=== PATIENT | female | born 1985 | race Caucasian/White ===

== ENCOUNTER 2016-11-30 07:18 | Emergency (ER) | payer MEDICAID ==
[~2016-11-30] VITALS: Ht 167.6 cm; Wt 63.5 kg
[2016-11-30 07:53] VITALS: BP 125/76
== END 2016-11-30 08:24 | disposition home or self-care (01) ==
LOC: ER 07:18
DX: F31.9 Bipolar disorder, unspecified (principal); Z88.8 Allergy status to other drugs, medicaments and biological substances; Z53.21 Procedure and treatment not carried out due to patient leaving prior to being seen by health care provider

== ENCOUNTER 2025-01-16 14:26 | Emergency (ER) | payer MEDICAID, OTHER ==
[~2025-01-16] VITALS: Ht 167.6 cm; Wt 61.5 kg
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
--- NOTE | 2025-01-16 15:57 | DVH ---
CLINICAL INDICATION: trauma TECHNIQUE: 3 radiographic views of the left hand were obtained. Comparison: None FINDINGS/IMPRESSION: There is 1.4 x 1 cm lytic lesion over the proximal part of the 5th digit proximal phalanx with associ ated comminuted mildly displaced fracture consistent with a pathologic fracture.
--- NOTE | 2025-01-16 16:09 | DVH ---
EXAM: CT HEAD WITHOUT CONTRAST INDICATION: trauma TECHNIQUE: CT of the head without intravenous contrast. Radiation Dose : 1. Head: CT Dose: CTDI volume is 51.63 mGy. Dose-length product is 755.91 mGy*cm The dose indicators for CT are the volume Computed Tomography (CT) Dose Index (CTDIvol) and the Dose Length Product (DLP), and are measured in units of mGy and mGy-cm, respectively. These indicators are not patient dose, but values generated from the CT scanner acquisition factors. The report includes radiation exposure data for exposures received during this examination. COMPARISON: None FINDINGS: There is no evidence of acute intracranial hemorrhage, extra-axial collection, mass effect, midline s hift, herniation or hydrocephalus. The ventricles, sulci and cisterns are age appropriate. The chaidez-white differentiation is intact. Patchy periventricular and subcortical white matter hypoattenuation is nonspecific but may be related to small vessel ischemic disease. The visualized paranasal sinuses and mastoid air cells are clear. The surrounding soft tissues and osseous structures are unremarkable. IMPRESSION: 1. No acute intracranial abnormality. Radiation optimization: All CT scans at this facility use at least one of these dose optimization blas hniques: automated exposure control mA and/or kV adjustment per patient size (includes targeted exam s where dose is matched to clinical indication) or iterative reconstruction.
[2025-01-16 16:39] VITALS: PULSE 60; RESP 11; O2SAT 98
[2025-01-16] MEDS: HYDROcodone-ACET 10/325MG TAB PO ONE (16:43)
[2025-01-16] MEDS: LIDOCAINE 1% HCL (LOCAL ANESTH.) INJ 20ML MDV ONE (16:45)
[2025-01-16] MEDS: LIDOCAINE 1% (LOCAL ANESTH.) PF 5ml SDV ID ONE (17:00)
[2025-01-16] MEDS ORDERED: HYDR-4902 PO (17:10)
[2025-01-16] MEDS: BACITRACIN TOP OINT 1 UD PKG TOP ONE (17:12)
--- NOTE | 2025-01-16 17:42 | DVH ---
CLINICAL INDICATION: trauma TECHNIQUE: 3 views XY L WRIST 2 VIEW XRAY Comparison: XY L HAND 3V XRAY on DOS: 01/16/25 FINDINGS/IMPRESSION: : Pathologic fracture of the proximal diaphyseal shaft of the proximal phalanx of the left 5th digit. C ystic lesion identified of the proximal 1/2 of the proximal phalanx of the left 5th digit. Differenti al diagnosis would include aneurysmal bone cyst as well as unicameral cyst.
[2025-01-16 19:00] VITALS: BP 117/75; PULSE 63; RESP 12; TEMP 98.1; O2SAT 99
== END 2025-01-16 19:25 | disposition home or self-care (01) ==
LOC: ER 14:26 → EDBD 14:26 → ER 19:25
DX: S62.102A Fracture of unspecified carpal bone, left wrist, initial encounter for closed fracture (principal); S81.812A Laceration without foreign body, left lower leg, initial encounter; S00.81XA Abrasion of other part of head, initial encounter; R42 Dizziness and giddiness; Z98.51 Tubal ligation status; Z88.0 Allergy status to penicillin; V89.2XXA Person injured in unspecified motor-vehicle accident, traffic, initial encounter; Y93.89 Activity, other specified; Y92.410 Unspecified street and highway as the place of occurrence of the external cause; Y99.8 Other external cause status
CPT/HCPCS: 12002; 70450; 73100; 73130; 99284; J2003